=== PATIENT | female | born 1990 | race Caucasian/White ===

== ENCOUNTER → 2017-07-31 | Outpatient (CLI) | payer BC | LOC: RT 08:51 | PROVIDERS: ATTEND Psychiatry & Neurology Neurology | DX: Z86.69 Personal history of other diseases of the nervous system and sense organs (principal); Z87.820 Personal history of traumatic brain injury | CPT/HCPCS: 95819 ==

== ENCOUNTER → 2017-08-01 | Outpatient (CLI) | payer BC ==
--- NOTE | 2017-08-01 10:16 | CT ---
Exam: Head CT without and with contrast History: 27-year-old female with history of seizure. Traumatic brain injury in 2002 Comparison: None Findings: Axial, sagittal, and coronal imaging was performed through the brain both before, then foll owing administration of intravenous contrast. The posterior fossa and supratentorial region unremarkable with no evidence of intracranial hemorrhag e or extracerebral fluid collections. No intracranial mass. Ventricles are symmetric in size and posi tion with no mass effect seen. Following contrast administration, there are no abnormal areas of enha ncement. On bone windows, no acute abnormality is seen. Incidental note is made of a mucous retention cyst at the floor of the left maxillary sinus. IMPRESSION: Unremarkable head CT with no acute intracranial abnormality identified. Reported By:
== END ==
LOC: RAD 08:58
PROVIDERS: ATTEND Psychiatry & Neurology Neurology
DX: Z86.69 Personal history of other diseases of the nervous system and sense organs (principal)
CPT/HCPCS: 70470; A4222